=== PATIENT | female | born 1975 | race Caucasian/White ===

== ENCOUNTER 2016-11-24 03:03 | Emergency (ER) | payer OTHER ==
--- NOTE | ~2016-11-24 | EKG ---
PATIENT: DRAGAN GRANT UNIT #: [id number] Ventricular Rate: 102 BPM Atrial Rate: 102 BPM P-R Interval: 126 ms QRS Duration: 66 ms Q-T Interval: 352 ms QTC Calculation(Bezet): 458 ms P [place]: 34 degrees Calculated R [place]: 58 degrees Calculated T [place]: 27 degrees Diagnosis Line: Sinus tachycardia Diagnosis Line: Baseline wander Poor R wave progression Diagnosis Line: questionable lead position or body habitus Diagnosis Line: Otherwise normal ECG Diagnosis Line: No previous ECGs available Diagnosis Line: Confirmed by VILLA PERRY MD ([id number]) on 11/26/2016 Diagnosis Line: 12:01:10 PM INTERPRETING MD: ORLANDO MUNOZ
--- NOTE | ~2016-11-24 | CR72 ---
[facility] A Service of [facility] RADIOLOGY TEXT RESULTS PATIENT: DRAGAN GRANT LOCATION: SED : [birth year] UNIT #: [id number] AGE: [address]: Kyle Carter MD SEX: F ORDER DR: [id number] [place] [id number] E MR#: [id number] Acc #: [id number] NAME: DRAGAN GRANT : 1975 SEX: F STUDY DATE/TIME: 11/24/2016 2:52 UNIT: SED ROOM: STUDY DESCRIPTION: CR Chest Single View Portable Attending Physician: Kyle Carter M.D. Ordering Physician: Kyle Carter M.D. Primary Care Physician: Rg Beaulieu M.D. MEDICAL IMAGING REPORT This report is preliminary unless electronic signature is present. EXAM AP portable chest, 11/24/2016 HISTORY 41-year-old female in the ED complaining of shortness of air beginning earlier this evening. TECHNIQUE AP portable chest x-ray. FINDINGS The examination shows low lung volumes with chronic elevation right hemidiaphragm and infiltrate or atelectasis in the right lung base. The lungs are otherwise clear. Heart size and pulmonary vascularity are normal. No visible pleural effusion. IMPRESSION Chronic elevation right hemidiaphragm with infiltrate or atelectasis in the right lung base. Dictated by... Raul Euceda M.D. THIS IS AN ELECTRONICALLY VERIFIED REPORT Raul Euceda M.D. at 11/24/2016 6:01 AM CATHY/melinda TD: 11/24/2016 05:19 JOB #: [id number] [facility] A Service [facility] RADIOLOGY TEXT RESULTS PATIENT: DRAGAN GRANT LOCATION: SED : [birth year] UNIT #: [id number] AGE: [address]: Kyle Carter MD SEX: F ORDER DR: MEDICAL IMAGING REPORT Page 1 of 1
[2016-11-24 03:01] LABS: BASOPHIL# 0.1 X10e3 (0-0.3); BASOPHIL% 0.8 % (0-2.5); EOSINOPHIL# 0.2 X10e3 (0-0.7); EOSINOPHIL% 1.8 % (0.0-7.0); HEMATOCRIT 42.3 % (35.0-45.0); HEMOGLOBIN 14.1 gm/dL (12.0-16.0); LYMPHOCYTE# 2.8 X10e3 (1.0-3.5); LYMPHOCYTE% 26.1 % (17.0-45.0); MEAN CELL VOLUME 84.6 FL (83-96); MEAN CORPUSCULAR HEMOGLOBIN 28.3 PG (28-34); MEAN CORPUSCULAR HGB CONC 33.4 g/dL (30-36); MEAN PLATELET VOLUME 7.8 FL (6.5-11.5); MONOCYTE# 0.5 X10e3 (0-1.0); MONOCYTE% 4.3 % (3.0-12.0); NEUTROPHIL# 7.3 X10e3 (1.5-7.1); PLATELET COUNT 287 X10e3 (140-420); RED CELL DISTRIBUTION WIDTH 12.5 % (11.0-15.5); WHITE BLOOD COUNT 10.9 X10e3 (4.0-10.5)
[~2016-11-24 03:03] MED LIST: CIPRO PO; GLUCOPHAGE500 MG PO; HCTZ PO; LORTAB 7.5-3251 EACH PO; METRONIDAZOLE PO; NEURONTIN300 MG PO; NO MEDICATIONS; NSAID PO; PARAFON FORTE500 MG PO; PENICILLIN V P500 MG PO; PERCOCET 10/3251 TAB PO; PREDNISONE PO; VEETIDS 500500 M1 PO; VOLTAREN75 MG PO; ZANAFLEX4 M1 PO; ZOFRAN PO
[2016-11-24 03:04] LABS: DIFF IND NO
[2016-11-24 03:13] LABS: BUN/CREATININE RATIO 21.42; CALCIUM SERUM 8.9 mg/dL (8.4-10.2); CREATININE SERUM 0.7 mg/dL (0.6-1.4); GLOM FILT RATE Estimated 108.4 mL/min (>60); POTASSIUM 3.4 mmol/L (3.5-5.1)
[2016-11-24 03:19] LABS: POC - CKMB 3.6 ng/mL (0.0-7.9); POC - TROPONIN <0.05 ng/mL (<=0.05)
[2016-11-24 06:21] LABS: POC - CKMB 2.7 ng/mL (0.0-7.9)
[2016-11-24 06:22] LABS: POC - TROPONIN <0.05 ng/mL (<=0.05)
== END 2016-11-24 06:36 | disposition home or self-care (01) ==
LOC: SED 03:03
PROVIDERS: Emergency Medicine
DX: T78.40XA Allergy, unspecified, initial encounter (principal); R73.9 Hyperglycemia, unspecified; R07.9 Chest pain, unspecified; Z88.5 Allergy status to narcotic agent; Z91.041 Radiographic dye allergy status; Z90.710 Acquired absence of both cervix and uterus
CPT/HCPCS: 71010; 80048; 82553; 82947; 84484; 85025; 93005; 96361; 96374; 96375; 99284; J1200; J2930

== ENCOUNTER 2017-04-20 21:10 | Emergency (ER) | payer OTHER ==
[~2017-04-20] VITALS: Ht 175.3 cm; Wt 81.6 kg
--- NOTE | ~2017-04-20 | CR63 ---
[facility] A Service of [facility] RADIOLOGY TEXT RESULTS PATIENT: DRAGAN GRANT LOCATION: SED : [birth year] UNIT #: [id number] AGE: [address]: Dick Bishop MD SEX: F ORDER DR: [id number] [address] [address] [id number] E MR#: [id number] Acc #: [id number] NAME: DRAGAN GRANT : 1975 SEX: F STUDY DATE/TIME: 04/20/2017 22:34 UNIT: SED ROOM: STUDY DESCRIPTION: CR Chest 2 View Attending Physician: Dick Bishop M.D. Ordering Physician: Dick Bishop M.D. Primary Care Physician: Rg Beaulieu M.D. MEDICAL IMAGING REPORT This report is preliminary unless electronic signature is present. EXAM Chest, PA and lateral, 04/20/2017. HISTORY Fever and cough beginning this morning. FINDINGS PA and lateral examination of the chest upright shows a good expansion of the parenchyma with a normal distribution of the pulmonary vascularity. There is no indication of congestion, effusion, infiltrate, tumor, or nodular density. The pleural reflections and diaphragmatic contours are normal. The cardiac silhouette and mediastinal anatomy is within normal limits. IMPRESSION Normal chest. Dictated by... Zander Clark M.D. THIS IS AN ELECTRONICALLY VERIFIED REPORT Zander Clark M.D. at 04/21/2017 10:40 AM ANUJA/rustam TD: 04/21/2017 08:11 JOB #: [id number] MEDICAL IMAGING REPORT Page 1 of 1
[2017-04-20 22:19] LABS: BASOPHIL# 0.1 X10e3 (0-0.3); BASOPHIL% 0.5 % (0-2.5); EOSINOPHIL% 0.1 % (0.0-7.0); HEMOGLOBIN 14.1 gm/dL (12.0-16.0); LYMPHOCYTE# 0.8 X10e3 (1.0-3.5); LYMPHOCYTE% 5.4 % (17.0-45.0); MEAN CELL VOLUME 84.5 FL (83-96); MEAN CORPUSCULAR HGB CONC 34.4 g/dL (30-36); MEAN PLATELET VOLUME 7.5 FL (6.5-11.5); MONOCYTE# 0.9 X10e3 (0-1.0); MONOCYTE% 6.1 % (3.0-12.0); NEUTROPHIL# 12.9 X10e3 (1.5-7.1); NEUTROPHIL% 87.9 % (40-75); PLATELET COUNT 219 X10e3 (140-420); RED BLOOD COUNT 4.85 X10e (3.90-5.30); RED CELL DISTRIBUTION WIDTH 12.4 % (11.0-15.5); WHITE BLOOD COUNT 14.6 X10e3 (4.0-10.5)
[2017-04-20 22:20] LABS: DIFF IND NO
[2017-04-20 22:33] LABS: ALBUMIN SERUM 3.9 g/dL (3.5-5.0); BILIRUBIN, DIRECT 0.2 mg/dL (0.0-0.2); BILIRUBIN,INDIRECT 0.9 mg/dL (0.0-0.9); BILIRUBIN,TOTAL 1.1 mg/dL (0.2-2.0); BUN/CREATININE RATIO 17.14; CALCIUM SERUM 8.4 mg/dL (8.4-10.2); CREATININE SERUM 0.7 mg/dL (0.6-1.4); GLOM FILT RATE Estimated 108.4 mL/min (>60); POTASSIUM 3.5 mmol/L (3.5-5.1); PROTEIN TOTAL SERUM 7.7 g/dL (6.0-8.3)
[2017-04-20 22:53] LABS: URINE SOURCE CLEAN CATCH
[2017-04-20 22:54] LABS: URINE APPEARANCE HAZY; URINE BILIRUBIN NEG (NEG); URINE BLOOD 1+ (NEG); URINE COLOR YELLOW; URINE GLUCOSE NEG (NORM); URINE LEUKOCYTE ESTERASE NEG (NEG); URINE NITRATE POS (NEG); URINE PROTEIN TRACE (NEG); URINE SPECIFIC GRAVITY >=1.030 (1.003-1.035); URINE UROBILINOGEN 0.2 MG/DL (NORM)
[2017-04-20 22:57] LABS: MICRO INDICATED? YES; URINE KETONE 2+ (NEG)
[2017-04-20 22:59] LABS: CULTURE INDICATED? YES; URINE BACTERIA 3+ (NEG); URINE SQUAMOUS EPITHELIAL CELL OCCAS /[HPF]; URINE TRANSITIONAL EPI CELLS FEW /[HPF]
== END 2017-04-21 00:40 | disposition home or self-care (01) ==
LOC: SED 21:10
PROVIDERS: Emergency Medicine
DX: T22.00XA Burn of unspecified degree of shoulder and upper limb, except wrist and hand, unspecified site, initial encounter (principal); T31.0 Burns involving less than 10% of body surface; Z91.041 Radiographic dye allergy status; Z88.5 Allergy status to narcotic agent; Z88.8 Allergy status to other drugs, medicaments and biological substances; X08.8XXA Exposure to other specified smoke, fire and flames, initial encounter
CPT/HCPCS: 36415; 71020; 80048; 80076; 81003; 83605; 85025; 87086; 87088; 87186; 96361; 96365; 96375; 99283; J0696; J2270; J2405